=== PATIENT | male | born 1990 | race Two or more races ===

== ENCOUNTER 2016-05-30 20:28 | Emergency (ER) | payer SELFPAY ==
[~2016-05-30] VITALS: Ht 167.6 cm; Wt 72.6 kg
[~2016-05-30 20:28] MED LIST: LIBRIUM10 MG ORAL
[2016-05-30 21:06] VITALS: BP 121/81
[2016-05-30 21:16] VITALS: BP 121/81
[2016-05-30] MEDS ORDERED: LIBRIUM10 MG ORAL (21:18)
--- NOTE | 2016-06-01 07:10 | Emergency Room Report ---
History of Present Illness General Chief Complaint: Medication Refill Source: Patient Present Illness HPI 25-year-old male presents to ED requesting medication refill. Patient is requesting a refill of Librium. Patient states he had a history of chronic alcohol abuse and states he needs Librium to help him stay sober. Patient states he has abstained from alcohol for several months now. Denies any fevers or chills. Denies drug use. Denies hearing voices. Denies feeling tremulous or shaking. Patient wants to prevent the symptoms before the start. Patient agrees that he needs to go to a detox facility. No other aggravating or relieving factors. Denies any other associated symptoms Allergies: Coded Allergies: No Known Allergies (Unverified , 04/12/16) Patient History Past Medical History: psych hx Past Surgical History: none Pertinent Family History: none Social History: Denies: alcohol use, drug use, smoking Immunizations: UTD Reviewed Nursing Documentation: PMH: Agreed, PSxH: Agreed Nursing Documentation-PMH Past Medical History: No History, Except For History Of Psychiatric Problem: Yes - ANXIETY Review of Systems All Other Systems: negative except mentioned in HPI Physical Exam Vital Signs Date Time Temp Pulse Resp B/P Pulse Ox O2 Delivery O2 Flow Rate FiO2 05/30/16 20:41 97.5 76 20 121/81 97 Room Air Sp02 EP Interpretation: reviewed, normal General Appearance: no apparent distress, alert, GCS 15, non-toxic Head: normocephalic, atraumatic Eyes: bilateral eye PERRL, bilateral eye normal inspection ENT: hearing grossly normal, normal pharynx, no angioedema, normal voice Neck: full range of motion, supple/symm/no masses Respiratory: chest non-tender, lungs clear, normal breath sounds, speaking full sentences Cardiovascular #1: regular rate, rhythm, no edema Cardiovascular #2: 2+ carotid (R), 2+ carotid (L), 2+ radial (R), 2+ radial (L) , 2+ dorsalis pedis (R), 2+ dorsalis pedis (L) Gastrointestinal: normal bowel sounds, non tender, soft, non-distended, no guarding, no rebound Rectal: deferred Genitourinary: normal inspection, no CVA tenderness Musculoskeletal: back normal, gait/station normal, normal range of motion, non- tender Neurologic: alert, oriented x3, responsive, motor strength/tone normal, sensory intact, speech normal Psychiatric: judgement/insight normal, memory normal, mood/affect normal, no suicidal/homicidal ideation Reflexes: 3+ bicep (R), 3+ bicep (L), 3+ tricep (R), 3+ tricep (L), 3+ knee (R) , 3+ knee (L) Skin: normal color, no rash, warm/dry, well hydrated Lymphatic: no adenopathy Medical Decision Making Diagnostic Impression: Primary Impression: Encounter for medication refill Additional Impression: Alcohol withdrawal Qualified Codes: F10.239 - Alcohol dependence with withdrawal, unspecified ER Course 25-year-old male presents to ED refill of his medication. takes librium hospital course: After initial history exam reveals a young male in no acute distress. No signs of tremulousness shaking or delirium associated with alcohol withdrawal. Vital stable. I agreed to write prescription for Librium however I will also provide referral information for alcohol detox programs Diagnosis-encounter for medication refill, ETOH withdrawawl Stable and discharged to home with prescription for librium. Followup with PMD. Return to ED if symptoms recur or worsen Last Vital Signs Date Time Temp Pulse Resp B/P Pulse Ox O2 Delivery O2 Flow Rate FiO2 05/30/16 21:16 97.5 76 20 121/81 97 Room Air Status: improved Disposition: HOME, SELF-CARE Condition: Stable Scripts Chlordiazepoxide Hcl* (LIBRIUM*) 10 Mg Capsule 10 MG ORAL THREE TIMES A DAY, #15 CAP 0 Refills Prov: PORFIRIO DAILEY M.D. 05/30/16 Referrals: NOT CHOSEN LEANN/,REFERRING (PCP) Patient Instructions: Medicine Refill at the Emergency Department PORFIRIO DAILEY M.D. Jun 01, 2016 07:10
== END 2016-05-30 21:20 | disposition home or self-care (01) ==
LOC: EMR 20:58
DX: F10.239 Alcohol dependence with withdrawal, unspecified (principal); Z76.0 Encounter for issue of repeat prescription; F41.9 Anxiety disorder, unspecified
CPT/HCPCS: 99281

== ENCOUNTER 2016-07-02 00:17 | Emergency (ER) | payer SELFPAY ==
[~2016-07-02] VITALS: Ht 165.1 cm; Wt 72.6 kg
[2016-07-02] MEDS ORDERED: NKM (00:30)
[2016-07-02] MEDS ORDERED: AMITRIPTYLINE25 MG ORAL (01:01)
--- NOTE | 2016-07-02 01:01 | Emergency Room Report ---
History of Present Illness General Chief Complaint: General Complaint Source: Patient, Medical Record Present Illness HPI Is a 26-year-old male whose been here several time. He had a history of heavy alcohol use but he stopped for couple months now. He's been here several time with complaint of anxiety/panic attack. He attributed this to about 3 months ago when he got extremely angry and traffic stopped. Since then he get very anxious and nervous. Complaining of numbness and shakiness to his right side. No fever or chills but no nausea no vomiting. Never had a CAT scan done. No other complaint. Suicidal thought homicidal thought. Allergies: Coded Allergies: No Known Allergies (Unverified , 04/12/16) Patient History Past Medical History: see triage record, old chart reviewed Past Surgical History: other Pertinent Family History: none Social History: Reports: alcohol use - History of, Denies: smoking Immunizations: other Reviewed Nursing Documentation: PMH: Agreed, PSxH: Agreed Nursing Documentation-PMH Past Medical History: No Stated History Review of Systems Eye: Denies: blurred vision, eye pain ENT: Denies: ear pain, nose congestion, throat swelling Respiratory: Denies: cough, shortness of breath Cardiovascular: Denies: chest pain, palpitations Gastrointestinal: Denies: abdominal pain, diarrhea, nausea, vomiting Musculoskeletal: Denies: back pain, joint pain Skin: Denies: rash Neurological: Reports: numbness, paresthesia, Denies: headache Endocrine: Denies: increased thirst, increased urine Hematologic/Lymphatic: Denies: easy bruising All Other Systems: negative except mentioned in HPI Physical Exam Vital Signs Date Time Temp Pulse Resp B/P Pulse Ox O2 Delivery O2 Flow Rate FiO2 07/02/16 00:25 97.7 73 16 126/82 94 Room Air vitals normal Sp02 EP Interpretation: reviewed, normal General Appearance: well appearing, no apparent distress, alert Head: normocephalic, atraumatic Eyes: bilateral eye EOMI, bilateral eye PERRL ENT: hearing grossly normal, normal pharynx Neck: full range of motion, supple, no meningismus Respiratory: chest non-tender, lungs clear, normal breath sounds Cardiovascular #1: regular rate, rhythm, no murmur Gastrointestinal: normal bowel sounds, non tender, no mass, no organomegaly, no bruit, non-distended Musculoskeletal: back normal, gait/station normal, normal range of motion Psychiatric: mood/affect normal Skin: warm/dry Medical Decision Making Diagnostic Impression: Primary Impression: Dizziness ER Course Patient with dizziness. Most likely anxiety psychiatric related. No evidence of TIA or CVA. No evidence of neoplastic process. CT scan negative. We'll discharge home. CT/MRI/US Diagnostic Results CT/MRI/US Diagnostic Results : Imaging Test Ordered: CT head Impression read by radiologist. Negative. Last Vital Signs Date Time Temp Pulse Resp B/P Pulse Ox O2 Delivery O2 Flow Rate FiO2 07/02/16 00:25 97.7 73 16 126/82 94 Room Air Status: improved Disposition: HOME, SELF-CARE Condition: Stable Scripts Amitriptyline HCl (ELAVIL*) 25 Mg Tablet 25 MG ORAL BEDTIME, #30 TAB Prov: MUSA BAEZA M.D. 07/02/16 Referrals: NOT CHOSEN [facility]/,REFERRING (PCP) Additional Instructions: Followup with your Dr. in 7 days. Return if symptom worsen. MUSA BAEZA M.D. Jul 02, 2016 01:01
[2016-07-02 01:36] VITALS: BP 126/82
--- NOTE | 2016-07-02 10:20 | Diagnostic Imaging Report ---
Indication: Altered mental status Technique: Contiguous 5 mm thick transaxial imaging of the head obtained in a Siemens Sensation [address] scanner. Soft tissue and bone windows generated. Total Dose length Product (DLP): [address] Dose Index Volume (CTDIvol): 70.38 mGy Comparison: none Findings: The size and configuration of the cortical sulci, basal cisterns, and ventricles are within normal limits for age. There is no mass effect, midline shift, or edema identified. There is no evidence of acute hemorrhage or abnormal intra-axial or extra-axial fluid collections. The bones and soft tissues are unremarkable. Impression: No mass effect, edema or acute bleed. The CT scanner at [facility] is accredited by the [employer] and the scans are performed using protocols designed to limit radiation exposure to as low as reasonably achievable to attain images of sufficient resolution adequate for diagnostic evaluation.
== END 2016-07-02 01:38 | disposition home or self-care (01) ==
LOC: EMR 00:53
DX: R42 Dizziness and giddiness (principal); Z86.59 Personal history of other mental and behavioral disorders; R45.851 Suicidal ideations; R20.0 Anesthesia of skin
CPT/HCPCS: 70450; 99284

== ENCOUNTER 2016-07-04 16:34 | Emergency (ER) | payer SELFPAY ==
[~2016-07-04] VITALS: Ht 165.1 cm; Wt 72.6 kg
[~2016-07-04 16:34] MED LIST changes: +AMITRIPTYLINE25 MG ORAL; +NKM
[2016-07-04 17:21] VITALS: BP 135/84
[2016-07-04] MEDS ORDERED: ATIVAN0.5 MG ORAL (17:48)
[2016-07-04 18:13] VITALS: BP 135/84
--- NOTE | 2016-07-04 20:06 | Emergency Room Report ---
History of Present Illness General Chief Complaint: General Complaint Source: Patient Present Illness HPI The patient is a 26-year-old male with a history of anxiety disorder and major depression presenting for feeling anxious and bilateral lower leg numbness. The patient states that he has not seen a psychiatrist in the past 2 years as he has been doing well without medications. The patient states that he has been under increased stress over the past week due to familial issues. The patient denies any pain, SIMMS, dizziness, blurred vision, N, V, F, chills, Or any other symptoms Allergies: Coded Allergies: No Known Allergies (Unverified , 04/12/16) Patient History Past Medical History: see triage record, psych hx Pertinent Family History: none Reviewed Nursing Documentation: PMH: Agreed, PSxH: Agreed Nursing Documentation-PMH History Of Psychiatric Problem: Yes - Depression Hx Seizures: Yes - "I had one seizure when I was in the 6th grade" Review of Systems All Other Systems: negative except mentioned in HPI Physical Exam Vital Signs Date Time Temp Pulse Resp B/P Pulse Ox O2 Delivery O2 Flow Rate FiO2 07/04/16 17:11 97.3 87 16 135/84 98 Room Air Sp02 EP Interpretation: reviewed, normal General Appearance: no apparent distress, alert, GCS 15, non-toxic Head: normocephalic, atraumatic Eyes: bilateral eye PERRL, bilateral eye normal inspection ENT: hearing grossly normal, normal pharynx, no angioedema, normal voice Neck: full range of motion, supple/symm/no masses Respiratory: chest non-tender, lungs clear, normal breath sounds, speaking full sentences Cardiovascular #1: regular rate, rhythm, no edema Neurologic: alert, oriented x3, responsive, motor strength/tone normal, sensory intact, normal gait, speech normal Psychiatric: memory normal, no suicidal/homicidal ideation, anxious Reflexes: 3+ bicep (R), 3+ bicep (L), 3+ tricep (R), 3+ tricep (L), 3+ knee (R) , 3+ knee (L) Skin: normal color, no rash, warm/dry, well hydrated Lymphatic: no adenopathy Medical Decision Making PA Attestation Dr. Oden is my supervising physician. Patient management was discussed with my supervising physician Diagnostic Impression: Primary Impression: Anxiety disorder ER Course The patient is a 26-year-old male with a history of anxiety disorder and major depression presenting for feeling anxious and bilateral lower leg numbness Differential diagnoses considered but not limited to suicidal ideation, homicidal ideation, anxiety, depression PE: Pt is mildly anxious. NAD. A&Ox4 PERRL legs: Full AROM. SILT. Normal gait. Pt is dc'ed home with a limited prescription for ativan and is given [facility] mental health clinic information. ER precautions given. Last Vital Signs Date Time Temp Pulse Resp B/P Pulse Ox O2 Delivery O2 Flow Rate FiO2 07/04/16 18:13 97.3 16 135/84 98 Room Air 07/04/16 17:11 87 Status: improved Disposition: HOME, SELF-CARE Condition: Improved Scripts Lorazepam* (ATIVAN*) 0.5 Mg Tablet 0.5 MG ORAL THREE TIMES A DAY, #15 TAB Prov: FARHANA CASTILLO 07/04/16 Referrals: NOT CHOSEN [facility]/MD,REFERRING (PCP) Patient Instructions: Depression, Adult Additional Instructions: I discussed my findings with the patient. All questions and concerns have been answered. Treatment and medication compliance have been addressed. I advised the patient that they need to follow up with PMD in 3-5 days. Return to ED if symptoms worsen, new symptoms arise, or if needed for any reason. Patient verbalized understanding of discharge instructions. The patient is told that he needs to followup with psychiatrist as soon as possible FARHANA CASTILLO Jul 04, 2016 20:06
== END 2016-07-04 18:18 | disposition home or self-care (01) ==
LOC: EMR 17:51
DX: F41.9 Anxiety disorder, unspecified (principal); R20.0 Anesthesia of skin; F33.2 Major depressive disorder, recurrent severe without psychotic features
CPT/HCPCS: 99283

== ENCOUNTER 2016-07-15 22:55 | Emergency (ER) | payer SELFPAY ==
[~2016-07-15] VITALS: Ht 167.6 cm; Wt 68.0 kg
[~2016-07-15 22:55] MED LIST changes: +ATIVAN0.5 MG ORAL
[2016-07-15 23:30] VITALS: BP 130/84
--- NOTE | 2016-07-16 02:39 | Emergency Room Report ---
History of Present Illness General Chief Complaint: Medication Refill Source: Patient Present Illness HPI Patient is a 26-year-old male presented after having reported increased anxiety. Patient had previously been seen in the emergency department several times for similar type symptoms. Patient prior history of alcohol abuse. Patient requested a medication refill of Ativan. Patient had previously been prescribed benzodiazepines while in emergency department. The patient denied any chest pain or shortness of breath. He denied leg pain or swelling.He reported having some intermittent brief palpitations during waking. Allergies: Coded Allergies: No Known Allergies (Unverified , 04/12/16) Patient History Past Medical History: see triage record Reviewed Nursing Documentation: PMH: Agreed, PSxH: Agreed Nursing Documentation-PMH History Of Psychiatric Problem: Yes - ANXIETY Hx Seizures: Yes - "I had one seizure when I was in the 6th grade" Review of Systems All Other Systems: negative except mentioned in HPI Physical Exam Vital Signs Date Time Temp Pulse Resp B/P Pulse Ox O2 Delivery O2 Flow Rate FiO2 07/15/16 22:59 98.1 72 16 130/84 98 Room Air General Appearance: well appearing, no apparent distress, alert, GCS 15 Head: normocephalic, atraumatic ENT: hearing grossly normal, normal voice Neck: full range of motion, supple Respiratory: no respiratory distress, speaking full sentences Cardiovascular #1: normal peripheral pulses, regular rate, rhythm, no edema Gastrointestinal: normal bowel sounds, non tender, soft, no mass Genitourinary: no CVA tenderness Musculoskeletal: normal inspection, back normal, no calf tenderness Neurologic: normal inspection, alert, oriented x3, responsive, clinical informatics educator III-XII nml as tested, motor strength/tone normal, normal gait Psychiatric: normal inspection, judgement/insight normal, mood/affect normal Skin: normal inspection, no rash Medical Decision Making Diagnostic Impression: Primary Impression: Anxiety disorder ER Course Patient presented for anxiety. The differential diagnosis included was not limited to arrhythmia, thyroid storm, sepsis, anemia, myocardial infarction, alcohol withdrawal, stimulant abuse, caffeine overdose among others. Patient' s benign exam and does not appear to require any further imaging or laboratory testing at this time. The patient was advised that he had been given prescription for benzodiazepines multiple times while emergency department he would not be given further prescriptions due to potential for abuse. Patient was advised followup with his previous scheduled psychiatric appointment Patient is advised to return if any worsening condition or if any changes in status that are concerning. Last Vital Signs Date Time Temp Pulse Resp B/P Pulse Ox O2 Delivery O2 Flow Rate FiO2 07/15/16 23:30 98.1 95 16 130/84 98 Room Air Status: improved Disposition: HOME, SELF-CARE Condition: Stable Referrals: NOT CHOSEN [facility]/MD,REFERRING (PCP) Patient Instructions: Palpitations Luis Banks Jul 16, 2016 02:39
== END 2016-07-15 23:45 | disposition home or self-care (01) ==
LOC: EMR 23:45
DX: F41.9 Anxiety disorder, unspecified (principal); Z76.0 Encounter for issue of repeat prescription; F10.21 Alcohol dependence, in remission; Z86.59 Personal history of other mental and behavioral disorders
CPT/HCPCS: 99281

== ENCOUNTER 2016-08-24 23:02 | Emergency (ER) | payer SELFPAY ==
[~2016-08-24] VITALS: Ht 167.6 cm; Wt 68.0 kg
[2016-08-24 23:18] VITALS: BP 137/94
[2016-08-24] MEDS ORDERED: AMITRIPTYLINE25 MG ORAL (23:33)
--- NOTE | 2016-08-24 23:33 | Emergency Room Report ---
History of Present Illness General Chief Complaint: Dyspnea/Respdistress Source: Patient Present Illness HPI Is a 26-year-old male with a history alcohol abuse. He said is no longer drinking. Also history of anxiety. He's been here several time for the same thing. He denies any fever or chills. Denies any nausea vomiting. He complaining of dizziness. His been ongoing for 2 and half weeks. He came in just "to make sure". Denied chest pain. Denies any other complaint. Denies any fever or chills. Allergies: Coded Allergies: No Known Allergies (Unverified , 08/24/16) Patient History Past Medical History: see triage record, old chart reviewed Past Surgical History: none Pertinent Family History: none Social History: Reports: alcohol use - History of, Denies: smoking Immunizations: other Reviewed Nursing Documentation: PMH: Agreed, PSxH: Agreed Nursing Documentation-PMH History Of Psychiatric Problem: Yes - anxiety Hx Seizures: Yes - "I had one seizure when I was in the 6th grade" Review of Systems Eye: Denies: blurred vision, eye pain ENT: Denies: ear pain, nose congestion, throat swelling Respiratory: Denies: cough, shortness of breath Cardiovascular: Denies: chest pain, palpitations Gastrointestinal: Denies: abdominal pain, diarrhea, nausea, vomiting Musculoskeletal: Denies: back pain, joint pain Skin: Denies: rash Neurological: Denies: headache, numbness Endocrine: Denies: increased thirst, increased urine Hematologic/Lymphatic: Denies: easy bruising All Other Systems: negative except mentioned in HPI Physical Exam Vital Signs Date Time Temp Pulse Resp B/P Pulse Ox O2 Delivery O2 Flow Rate FiO2 08/24/16 23:18 98.1 78 16 137/94 98 Room Air vitals normal Sp02 EP Interpretation: reviewed, normal General Appearance: well appearing, no apparent distress, alert Head: normocephalic, atraumatic Eyes: bilateral eye EOMI, bilateral eye PERRL ENT: hearing grossly normal, normal pharynx Neck: full range of motion, supple, no meningismus Respiratory: chest non-tender, lungs clear, normal breath sounds Cardiovascular #1: regular rate, rhythm, no murmur Gastrointestinal: normal bowel sounds, non tender, no mass, no organomegaly, no bruit, non-distended Musculoskeletal: back normal, gait/station normal, normal range of motion Psychiatric: mood/affect normal Skin: warm/dry Medical Decision Making Diagnostic Impression: Primary Impression: Anxiety disorder Qualified Codes: F41.1 - Generalized anxiety disorder ER Course Patient presents with dyspnea and dizziness. He looks well. In labor any difficulty. We'll discharge home. He may benefit from an SSRI. Last Vital Signs Date Time Temp Pulse Resp B/P Pulse Ox O2 Delivery O2 Flow Rate FiO2 08/24/16 23:18 98.1 78 16 137/94 98 Room Air Status: improved Disposition: HOME, SELF-CARE Condition: Stable Scripts Amitriptyline HCl (ELAVIL*) 25 Mg Tablet 25 MG ORAL BEDTIME, #30 TAB Prov: MUSA BAEZA M.D. 08/24/16 Additional Instructions: Followup with the clinic or your Dr. in 7 days. Return if worse. MUSA BAEZA M.D. Aug 24, 2016 23:33
[2016-08-24 23:41] VITALS: BP 137/94
== END 2016-08-24 23:44 | disposition home or self-care (01) ==
LOC: EMR 23:28
DX: F41.1 Generalized anxiety disorder (principal)
CPT/HCPCS: 99283

== ENCOUNTER 2016-09-18 14:00 | Emergency (ER) | payer SELFPAY ==
[~2016-09-18] VITALS: Ht 167.6 cm; Wt 68.0 kg
[2016-09-18 14:05] VITALS: BP 129/87
--- NOTE | 2016-09-18 14:40 | Emergency Room Report ---
History of Present Illness General Chief Complaint: General Complaint Source: Patient Present Illness HPI 26 y/o male c/o multiple symptoms. States for past 1 year he has had halos in vision, nausea that is worse in the morning, fatigue, and headache. States that its gotten worse in the past 6 months. Now patient is experiencing increased thirst for past 2 months with polydipsia. Worse in the morning where he wakes up with some confusion and vertigo with nausea and better as the day goes on. Denies any previous workup and states he has no history of medical illness or head injury. Allergies: Coded Allergies: No Known Allergies (Unverified , 08/24/16) Patient History Past Medical History: see triage record Past Surgical History: none Pertinent Family History: none Immunizations: UTD Reviewed Nursing Documentation: PMH: Agreed, PSxH: Agreed Nursing Documentation-PMH Past Medical History: No History, Except For Hx Seizures: Yes - sz x1 Review of Systems Constitutional: Reports: weakness Eye: Reports: other - halos Gastrointestinal: Reports: nausea Neurological: Reports: dizziness, headache Endocrine: Reports: increased thirst Physical Exam Vital Signs Date Time Temp Pulse Resp B/P Pulse Ox O2 Delivery O2 Flow Rate FiO2 09/18/16 14:05 98.1 74 18 129/87 98 Room Air Sp02 EP Interpretation: reviewed, normal Head: normocephalic, atraumatic Eyes: bilateral eye EOMI, bilateral eye PERRL, bilateral eye normal inspection ENT: hearing grossly normal, normal pharynx, no angioedema, normal voice Neck: full range of motion, supple/symm/no masses, other - perispinal neck tenderness. No bony tenderness or rigidity Respiratory: chest non-tender, lungs clear, normal breath sounds, speaking full sentences Cardiovascular #1: regular rate, rhythm, no edema Gastrointestinal: non tender, soft Neurologic: alert, oriented x3, responsive, case supervisor III-XII nml as tested, motor strength/tone normal, DTRs symmetric, sensory intact, cerebellar normal, normal gait, speech normal, no Babinski, no pronator Psychiatric: judgement/insight normal, memory normal, mood/affect normal, no suicidal/homicidal ideation Reflexes: 2+ tricep (R), 2+ tricep (L), 2+ knee (R), 2+ knee (L) Skin: normal color, no rash, warm/dry, well hydrated Lymphatic: no adenopathy Medical Decision Making PA Attestation Dr. Garrison is my supervising physician with whom patient management has been discussed with. Diagnostic Impression: Primary Impression: Encounter for generalized patient complaints ER Course Patient arrived with multiple complaints. DDx included but not limited to migraine, cerebral mass, pituitary adenoma, adrenal insufficiency. Patient stated they did not want labs to be drawn. I changed my orders to CT w/o contrast since we could not get GFR due to patient not wanting labs completed. Patient declined wanting CT Head. Patient then signed AMA and left the ER without any diagnostic evaluation completed. Last Vital Signs Date Time Temp Pulse Resp B/P Pulse Ox O2 Delivery O2 Flow Rate FiO2 09/18/16 14:05 98.1 74 18 129/87 98 Room Air Disposition: AGAINST MEDICAL ADVICE BLANQUITA UREÑA September 18, 2016 14:40
[2016-09-18 15:40] VITALS: BP 129/87
== END 2016-09-18 15:40 | disposition home or self-care (01) ==
LOC: EMR 14:34
DX: R63.1 Polydipsia (principal); R53.1 Weakness; R11.0 Nausea; R42 Dizziness and giddiness; R51 Headache
CPT/HCPCS: 82962; 93005; 99283